=== PATIENT | male | born 1985 | race Two or more races ===

== ENCOUNTER 2018-02-14 01:53 | Emergency (ER) | payer MEDICAID ==
[2018-02-14] MEDS ORDERED: KETOROLAC TROMETHAMINE 15 MG/ML VIAL ONE (04:52)
--- NOTE | 2018-02-14 05:50 | NUR ---
REFER TO PAPER CHARTING PRIOR TO THIS TIME.
--- NOTE | 2018-02-14 07:09 | NUR ---
Patient discharged to home in stable condition. Written and verbal after care instructions given. Patient verbalizes understanding of instruction. ambulatory with a steady gait, pt w/c to waiting room per pt request.
== END 2018-02-14 07:12 | disposition home or self-care (01) ==
LOC: ER 01:53
DX: S82.61XA Displaced fracture of lateral malleolus of right fibula, initial encounter for closed fracture (principal); V43.92XA Unspecified car occupant injured in collision with other type car in traffic accident, initial encounter; Y93.89 Activity, other specified; Y92.488 Other paved roadways as the place of occurrence of the external cause; Y99.8 Other external cause status
CPT/HCPCS: 29515; 71045; 73610; 99284; J1885